=== PATIENT | female | born 2000 | race Caucasian/White ===

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

== ENCOUNTER → 2019-05-12 | Outpatient (CLI) | payer BC, MEDICAID ==
[~2019-05-12] MED LIST changes: +BUSPIRONE HCL7.5 MG PO; +CYCLOBENZAPRINE10 M1 PO; +LEVOTHYROXINE0.05 MG PO
[2019-05-12 09:32] LABS: EOS # 0.1 (0.04-0.40); EOS % 0.8 % (0.1-4.0); HEMATOCRIT 35.4 % (35.0-45.0); HEMOGLOBIN 10.8 g/dL (12.0-15.0); LYMPH# 2.2 (1.20-3.40); MEAN CELL VOLUME 80 fl (78-95); MEAN CORPUSCULAR HGB CONC 31 g/dL (33-37); MEAN PLATELET VOLUME 10.2 fl (7.4-10.4); MONO # 0.6 (0.10-0.60); NEU # 6.1 (1.40-6.50); PLATELET COUNT 374 K/mm3 (130-400); RED BLOOD COUNT 4.44 M/mm3 (4.10-5.30); RED CELL DISTRIBUTION WIDTH 15.2 % (11.5-14.5); WHITE BLOOD COUNT 8.9 K/mm3 (4.8-10.8)
[2019-05-12 09:33] LABS: MEAN CORPUSCULAR HEMOGLOBIN 24 pg (26-32)
== END ==
LOC: LAB 09:15
PROVIDERS: Nurse Practitioner
DX: J06.9 Acute upper respiratory infection, unspecified (principal)

== ENCOUNTER 2019-05-21 11:26 | Emergency (ER) | payer BC ==
[~2019-05-21] VITALS: Wt 117.0 kg
[~2019-05-21 11:26] MED LIST changes: +LEVOTHYROXIN0.075 MG PO; -LEVOTHYROXINE0.05 MG PO
[2019-05-21 12:15] LABS: EOS # 0.1 (0.04-0.40); EOS % 0.6 % (0.1-4.0); HEMOGLOBIN 11.4 g/dL (12.0-15.0); LYMPH# 2.1 (1.20-3.40); MEAN CELL VOLUME 78 fl (78-95); MEAN CORPUSCULAR HGB CONC 31 g/dL (33-37); MEAN PLATELET VOLUME 10.3 fl (7.4-10.4); MONO # 0.9 (0.10-0.60); NEU # 6.9 (1.40-6.50); PLATELET COUNT 387 K/mm3 (130-400); RED BLOOD COUNT 4.76 M/mm3 (4.10-5.30); RED CELL DISTRIBUTION WIDTH 14.9 % (11.5-14.5); WHITE BLOOD COUNT 9.9 K/mm3 (4.8-10.8)
[2019-05-21 12:21] LABS: MEAN CORPUSCULAR HEMOGLOBIN 24 pg (26-32)
[2019-05-21 12:43] LABS: POTASSIUM 4.1 mmol/L (3.5-5.1)
[2019-05-21 12:44] LABS: CALCIUM 9.9 mg/dL (8.3-10.5)
[2019-05-21 12:46] LABS: TOTAL PROTEIN 8.2 g/dL (6.4-8.3)
[2019-05-21 12:47] LABS: TOTAL BILIRUBIN 0.6 mg/dL (0.2-1.2)
[2019-05-21 13:18] LABS: URINE APPEARANCE HAZY; URINE BILIRUBIN NEGATIVE (NEGATIVE); URINE BLOOD TRACE (NEGATIVE); URINE COLOR YELLOW; URINE GLUCOSE NEGATIVE (NEGATIVE); URINE KETONE NEGATIVE (NEGATIVE); URINE LEUKOCYTE ESTERASE TRACE (NEGATIVE); URINE NITRATE NEGATIVE (NEGATIVE); URINE PROTEIN(semi-quant) 1+ mg/dL (NEGATIVE); URINE UROBILINOGEN NORMAL (NORMAL)
[2019-05-21] MEDS ORDERED: BACTRIM DS TAB1 EACH PO (14:13)
[2019-05-21 14:22] VITALS: BP 139/84
== END 2019-05-21 14:28 | disposition home or self-care (01) ==
LOC: ED 11:26
PROVIDERS: Nurse Practitioner Primary Care
DX: R10.9 Unspecified abdominal pain (principal)
CPT/HCPCS: J1885; Q9967

== ENCOUNTER → 2020-11-21 | Outpatient (CLI) | payer BC, MEDICAID ==
[~2020-11-21] MED LIST changes: +BACTRIM DS TAB1 EACH PO
== END ==
LOC: RAD 08:55
DX: R74.8 Abnormal levels of other serum enzymes (principal)

== ENCOUNTER 2021-12-19 18:13 | Inpatient (IN) | payer BC, MEDICAID ==
[~2021-12-19] VITALS: Ht 167.6 cm; Wt 125.6 kg
[2021-12-19] MEDS ORDERED: IBU800 M1 PO (18:27)
[2021-12-19] MEDS ORDERED: LEVOTHYROXINE112 MC1 PO (18:27)
[2021-12-19 19:27] LABS: ALBUMIN 4.1 g/dL (3.5-5.0); POTASSIUM 4.2 mmol/L (3.5-5.1)
[2021-12-19 19:29] LABS: CALCIUM 9.8 mg/dL (8.3-10.5)
[2021-12-19 19:30] LABS: BASO # 0.03 K/mm3 (0.02-0.10); EOS # 0.13 K/mm3 (0.04-0.40); EOS % 1.2 % (1.0-5.0); HEMOGLOBIN 11.9 g/dL (12.5-16.0); MEAN CELL VOLUME 80 fl (78-100); MEAN CORPUSCULAR HEMOGLOBIN 25 pg (27-31); MEAN CORPUSCULAR HGB CONC 31 g/dL (33-37); MEAN PLATELET VOLUME 9.8 fl (7.4-10.4); MONO # 0.67 K/mm3 (0.20-0.80); NEU # 7.51 K/mm3 (1.40-6.50); PLATELET COUNT 355 K/mm3 (130-400); RED BLOOD COUNT 4.77 M/mm3 (4.10-5.30); RED CELL DISTRIBUTION WIDTH 14.5 % (11.5-14.5); TOTAL PROTEIN 7.6 g/dL (6.4-8.3); WHITE BLOOD COUNT 10.6 K/mm3 (4.8-10.8)
[2021-12-19 19:32] LABS: TOTAL BILIRUBIN 0.8 mg/dL (0.2-1.2)
[2021-12-19 20:06] LABS: URINE APPEARANCE CLEAR; URINE BILIRUBIN NEGATIVE (NEGATIVE); URINE BLOOD TRACE (NEGATIVE); URINE COLOR YELLOW; URINE GLUCOSE NEGATIVE (NEGATIVE); URINE KETONE NEGATIVE (NEGATIVE); URINE LEUKOCYTE ESTERASE TRACE (NEGATIVE); URINE NITRATE NEGATIVE (NEGATIVE); URINE PROTEIN(semi-quant) TRACE (NEGATIVE); URINE UROBILINOGEN NORMAL (NORMAL)
[2021-12-19 20:07] LABS: URINE MUCUS PRESENT (NOT PRESENT)
[2021-12-19 22:00] VITALS: BP 123/74
[2021-12-20 02:10] VITALS: BP 113/75
[2021-12-20 06:05] VITALS: BP 106/66
[2021-12-20 07:09] LABS: BASO # 0.03 K/mm3 (0.02-0.10); EOS # 0.08 K/mm3 (0.04-0.40); HEMATOCRIT 35.6 % (37.0-47.0); LYMPH# 1.89 K/mm3 (1.50-4.00); MEAN CELL VOLUME 81 fl (78-100); MEAN CORPUSCULAR HEMOGLOBIN 25 pg (27-31); MEAN CORPUSCULAR HGB CONC 31 g/dL (33-37); MEAN PLATELET VOLUME 9.7 fl (7.4-10.4); MONO # 0.56 K/mm3 (0.20-0.80); PLATELET COUNT 319 K/mm3 (130-400); RED BLOOD COUNT 4.38 M/mm3 (4.10-5.30); RED CELL DISTRIBUTION WIDTH 14.6 % (11.5-14.5)
[2021-12-20 07:18] LABS: ALBUMIN 3.7 g/dL (3.5-5.0)
[2021-12-20 07:20] LABS: TOTAL PROTEIN 7.1 g/dL (6.4-8.3)
[2021-12-20 07:22] LABS: TOTAL BILIRUBIN 0.8 mg/dL (0.2-1.2)
[2021-12-20 09:18] VITALS: BP 114/68
[2021-12-20 14:04] VITALS: BP 103/69
[2021-12-20 17:45] VITALS: BP 120/74
[2021-12-20 22:15] VITALS: BP 115/72
[2021-12-21 05:59] VITALS: BP 124/80
[2021-12-21 06:50] LABS: BASO # 0.03 K/mm3 (0.02-0.10); EOS # 0.12 K/mm3 (0.04-0.40); EOS % 1.6 % (1.0-5.0); HEMATOCRIT 31.5 % (37.0-47.0); HEMOGLOBIN 9.9 g/dL (12.5-16.0); LYMPH# 1.85 K/mm3 (1.50-4.00); MEAN CELL VOLUME 82 fl (78-100); MEAN CORPUSCULAR HEMOGLOBIN 26 pg (27-31); MEAN CORPUSCULAR HGB CONC 31 g/dL (33-37); MEAN PLATELET VOLUME 9.8 fl (7.4-10.4); MONO # 0.43 K/mm3 (0.20-0.80); NEU # 5.06 K/mm3 (1.40-6.50); PLATELET COUNT 277 K/mm3 (130-400); RED BLOOD COUNT 3.83 M/mm3 (4.10-5.30); RED CELL DISTRIBUTION WIDTH 14.6 % (11.5-14.5); WHITE BLOOD COUNT 7.5 K/mm3 (4.8-10.8)
[2021-12-21 06:57] LABS: ALBUMIN 3.5 g/dL (3.5-5.0); POTASSIUM 3.9 mmol/L (3.5-5.1)
[2021-12-21 06:58] LABS: CALCIUM 8.8 mg/dL (8.3-10.5)
[2021-12-21 06:59] LABS: TOTAL PROTEIN 6.6 g/dL (6.4-8.3)
[2021-12-21 07:01] LABS: TOTAL BILIRUBIN 0.4 mg/dL (0.2-1.2)
[2021-12-21 09:59] VITALS: BP 116/75
[2021-12-21 13:55] VITALS: BP 129/82
[2021-12-21 17:07] VITALS: BP 119/79
[2021-12-21 21:56] VITALS: BP 117/73
[2021-12-22 06:12] VITALS: BP 124/73
[2021-12-22 06:54] LABS: BASO # 0.01 K/mm3 (0.02-0.10); EOS # 0.17 K/mm3 (0.04-0.40); EOS % 2.4 % (1.0-5.0); HEMATOCRIT 31.1 % (37.0-47.0); HEMOGLOBIN 9.9 g/dL (12.5-16.0); LYMPH# 1.87 K/mm3 (1.50-4.00); MEAN CELL VOLUME 81 fl (78-100); MEAN CORPUSCULAR HEMOGLOBIN 26 pg (27-31); MEAN CORPUSCULAR HGB CONC 32 g/dL (33-37); MEAN PLATELET VOLUME 9.6 fl (7.4-10.4); MONO # 0.49 K/mm3 (0.20-0.80); NEU # 4.65 K/mm3 (1.40-6.50); PLATELET COUNT 275 K/mm3 (130-400); RED BLOOD COUNT 3.82 M/mm3 (4.10-5.30); RED CELL DISTRIBUTION WIDTH 14.5 % (11.5-14.5); WHITE BLOOD COUNT 7.2 K/mm3 (4.8-10.8)
[2021-12-22 07:00] LABS: ALBUMIN 3.6 g/dL (3.5-5.0)
[2021-12-22 07:01] LABS: POTASSIUM 3.8 mmol/L (3.5-5.1)
[2021-12-22 07:02] LABS: CALCIUM 9.5 mg/dL (8.3-10.5)
[2021-12-22 07:03] LABS: TOTAL PROTEIN 6.8 g/dL (6.4-8.3)
[2021-12-22 07:05] LABS: TOTAL BILIRUBIN 0.3 mg/dL (0.2-1.2)
[2021-12-22] MEDS ORDERED: GOOD NEIGHBOR P20 M1 PO (09:03)
[2021-12-22 09:17] VITALS: BP 112/75
== END 2021-12-22 09:35 | disposition home or self-care (01) | DRG 776 ==
LOC: ED 18:13 → MED/SURG 21:03
PROVIDERS: Nurse Practitioner; ADMIT Physician Assistant
DX: O99.63 Diseases of the digestive system complicating the puerperium (principal); K85.90 Acute pancreatitis without necrosis or infection, unspecified; K80.80 Other cholelithiasis without obstruction; O99.285 Endocrine, nutritional and metabolic diseases complicating the puerperium; E03.9 Hypothyroidism, unspecified; E78.1 Pure hyperglyceridemia; Z20.822 Contact with and (suspected) exposure to COVID-19
CPT/HCPCS: C9113; J1650; J1885; J2405; J2550; J3010; J7030; Q9967

== ENCOUNTER → 2022-08-22 | Outpatient (CLI) | payer BC, MEDICAID ==
[~2022-08-22] MED LIST changes: +GOOD NEIGHBOR P20 M1 PO; +IBU800 M1 PO; +LEVOTHYROXINE112 MC1 PO
== END ==
LOC: RAD 09:38
DX: R51.9 Headache, unspecified (principal)
CPT/HCPCS: Q9967

== ENCOUNTER → 2023-06-28 | Outpatient (CLI) | payer BC, MEDICAID | LOC: LAB 10:58 | DX: J06.9 Acute upper respiratory infection, unspecified (principal); Z11.52 Encounter for screening for COVID-19; Z20.822 Contact with and (suspected) exposure to COVID-19 ==

== ENCOUNTER 2024-06-07 13:07 | Emergency (ER) | payer BC, MEDICAID ==
[~2024-06-07] VITALS: Ht 167.6 cm; Wt 113.6 kg
[~2024-06-07 13:07] MED LIST changes: +KETOROLAC10 MG PO
[2024-06-07 14:13] LABS: BASO # 0.02 K/mm3 (0.02-0.10); EOS # 0.13 K/mm3 (0.04-0.40); EOS % 1.6 % (1.0-5.0); HEMATOCRIT 36.2 % (37.0-47.0); HEMOGLOBIN 11.6 g/dL (12.5-16.0); LYMPH# 2.01 K/mm3 (1.50-4.00); MEAN CELL VOLUME 85 fl (78-100); MEAN CORPUSCULAR HEMOGLOBIN 27 pg (27-31); MEAN CORPUSCULAR HGB CONC 32 g/dL (33-37); MEAN PLATELET VOLUME 9.8 fl (7.4-10.4); MONO # 0.47 K/mm3 (0.20-0.80); NEU # 5.38 K/mm3 (1.40-6.50); PLATELET COUNT 274 K/mm3 (130-400); RED BLOOD COUNT 4.25 M/mm3 (4.10-5.30); RED CELL DISTRIBUTION WIDTH 12.8 % (11.5-14.5)
[2024-06-07 14:19] LABS: ALBUMIN 4.1 g/dL (3.5-5.0)
[2024-06-07 14:20] LABS: CALCIUM 9.2 mg/dL (8.3-10.5)
[2024-06-07 14:23] LABS: TOTAL BILIRUBIN 0.3 mg/dL (0.2-1.2)
[2024-06-07] MEDS ORDERED: Acetaminophen 500 MG TAB PO ONE (14:30)
[2024-06-07 14:57] VITALS: BP 99/73
== END 2024-06-07 15:00 | disposition home or self-care (01) ==
LOC: ED 13:07
PROVIDERS: Family Medicine
DX: S06.0X0A Concussion without loss of consciousness, initial encounter (principal); F17.290 Nicotine dependence, other tobacco product, uncomplicated; W01.198A Fall on same level from slipping, tripping and stumbling with subsequent striking against other object, initial encounter

== ENCOUNTER 2024-07-07 21:12 | Emergency (ER) | payer BC, MEDICAID ==
[2024-07-07] MEDS ORDERED: LEVOTHYROXINE0.15 MG PO (21:25)
[2024-07-07] MEDS ORDERED: GLUCOPHAGE PO (21:26)
[2024-07-07] MEDS ORDERED: NS 1,000 ML IV ONE (21:30)
[2024-07-07 21:39] LABS: BASO # 0.01 K/mm3 (0.02-0.10); EOS # 0.08 K/mm3 (0.04-0.40); HEMATOCRIT 35.2 % (37.0-47.0); HEMOGLOBIN 11.4 g/dL (12.5-16.0); LYMPH# 2.54 K/mm3 (1.50-4.00); MEAN CELL VOLUME 83 fl (78-100); MEAN CORPUSCULAR HEMOGLOBIN 27 pg (27-31); MEAN CORPUSCULAR HGB CONC 32 g/dL (33-37); MEAN PLATELET VOLUME 9.9 fl (7.4-10.4); MONO # 0.56 K/mm3 (0.20-0.80); NEU # 5.04 K/mm3 (1.40-6.50); PLATELET COUNT 278 K/mm3 (130-400); RED BLOOD COUNT 4.23 M/mm3 (4.10-5.30); RED CELL DISTRIBUTION WIDTH 12.4 % (11.5-14.5); WHITE BLOOD COUNT 8.3 K/mm3 (4.8-10.8)
[2024-07-07] MEDS ORDERED: Ketorolac 30 MG/ML VIAL IM ONE (21:45)
[2024-07-07] MEDS ORDERED: Orphenadrine 60 MG/2ML AMP IM ONE (21:45)
[2024-07-07 21:47] LABS: ALBUMIN 4.1 g/dL (3.5-5.0); SODIUM 140 mmol/L (136-145)
[2024-07-07 21:49] LABS: CALCIUM 9.1 mg/dL (8.3-10.5)
[2024-07-07 21:50] LABS: GLUCOSE 102 mg/dL (65-105); TOTAL PROTEIN 7.3 g/dL (6.4-8.3)
[2024-07-07 21:51] LABS: CARBON DIOXIDE 22 mmol/L (22-29)
[2024-07-07 21:52] LABS: TOTAL BILIRUBIN 0.2 mg/dL (0.2-1.2)
[2024-07-07 21:55] LABS: AST-SGOT 14 U/L (5-34)
[2024-07-07 21:55] LABS: URINE APPEARANCE SLIGHTLY CLOUDY (CLEAR); URINE COLOR YELLOW (YELLOW); URINE GLUCOSE NEGATIVE (NEGATIVE); URINE KETONE NEGATIVE (NEGATIVE); URINE PROTEIN(semi-quant) NEGATIVE (NEGATIVE)
[2024-07-07 21:56] LABS: URINE BILIRUBIN NEGATIVE (NEGATIVE); URINE BLOOD NEGATIVE (NEGATIVE); URINE LEUKOCYTE ESTERASE 1+ (NEGATIVE); URINE NITRATE NEGATIVE (NEGATIVE)
[2024-07-07 21:56] LABS: ALT/SGPT 26 U/L (0-55)
[2024-07-07 22:06] LABS: TROPONIN-I < 0.030 ng/mL (0.00-0.033)
[2024-07-07] MEDS ORDERED: AMOXICILLIN AND1 TA2 PO (22:35)
[2024-07-07 22:38] VITALS: BP 135/85
== END 2024-07-07 22:38 | disposition home or self-care (01) ==
LOC: ED 21:12
PROVIDERS: Family Medicine
DX: H66.91 Otitis media, unspecified, right ear (principal)
CPT/HCPCS: J1885; J2360